=== PATIENT | female | born 1995 | race Hispanic/Latino ===

== ENCOUNTER 2018-03-31 01:39 | Emergency (ER) | payer OTHER ==
[2018-03-31] MEDS ORDERED: Midazolam HCl 2 mg/2 ml Vial ONE (01:57)
--- NOTE | 2018-04-02 15:13 | EKG ---
Test Reason : Blood Pressure : / mmHG Vent. Rate : 080 BPM Atrial Rate : 080 BPM P-R Int : 144 ms QRS Dur : 100 ms QT Int : 410 ms P-R-T Axes : 044 082 023 degrees QTc Int : 472 ms Normal sinus rhythm Cannot rule out Inferior infarct , age undetermined Abnormal ECG Confirmed by MANA SILVA DO ([id number]), newspaper or periodical editor EDEN NAVARRETE ([id number] on 04/02/2018 3:13:04 PM Referred By: Confirmed By:MANA SILVA DO
== END 2018-03-31 04:40 | disposition home or self-care (01) ==
LOC: ERS 01:39
DX: F41.9 Anxiety disorder, unspecified (principal); J45.909 Unspecified asthma, uncomplicated
CPT/HCPCS: 93005; 96361; 96374; J2250